=== PATIENT | female | born 1990 | race African-American/Black ===

== ENCOUNTER 2021-06-11 18:08 | Emergency (ER) | payer OTHER ==
[~2021-06-11] VITALS: Ht 157.5 cm; Wt 54.4 kg
== END 2021-06-11 22:23 | disposition home or self-care (01) ==
LOC: ER 18:08
DX: S01.521A Laceration with foreign body of lip, initial encounter (principal); W22.8XXA Striking against or struck by other objects, initial encounter; Y93.89 Activity, other specified; Y92.89 Other specified places as the place of occurrence of the external cause; Y99.8 Other external cause status